=== PATIENT | female | born 1995 | race American Indian/Alaskan Native ===

== ENCOUNTER 2019-05-29 00:44 | Outpatient (CLI) | payer MEDICAID ==
[2019-05-29] MEDS ORDERED: TYLENOL #3 PO ONE (02:00)
[2019-05-29 02:35] LABS: Bilirubin,Urine NEG (Negative); Blood,Urine LG (Negative); Color,Urine Yellow (Yellow); RBC,Urine > 182.0 /HPF (0.0-6.0); Urobilinogen,Urine < 2.0 mg/dL (<2.0); WBC,Urine > 182.0 /HPF (0.0-6.0)
--- NOTE | 2019-05-29 02:43 | Ultrasound Report ---
Bilateral renal ultrasound. 05/29/2019. HISTORY: Hematuria. FINDINGS: Right kidney measures 13.5 cm. Left kidney measures 8.8 cm. Moderate right-sided hydronephr osis is present. Negative for mass or cortical thinning. Mild increased echogenicity is noted on the right. The bladder is decompressed. IMPRESSION: 1. Moderate right-sided hydronephrosis. 2. Mild increased cortical echogenicity on the right. Signer Name: Javier Ford MD Signed: 05/29/2019 2:39 AM Workstation Name: [id number]
[2019-05-29 04:21] LABS: Hematocrit 36.8 % (30.3-42.9); Hemoglobin 12.6 gm/dl (10.1-14.3); Mean Corpuscular HGB Conc 34 % (30-34); Mean Corpuscular Volume 80 fl (79-97); Platelet Count 153 K/mm3 (140-440); Red Blood Count 4.59 M/mm3 (3.65-5.03); Red Cell Distribution Width 13.8 % (13.2-15.2)
== END 2019-05-29 04:00 | disposition home or self-care (01) ==
LOC: TRG 00:44
PROVIDERS: ATTEND Obstetrics & Gynecology
DX: O99.89 Other specified diseases and conditions complicating pregnancy, childbirth and the puerperium (principal); N13.30 Unspecified hydronephrosis; Z3A.23 23 weeks gestation of pregnancy
CPT/HCPCS: 36415; 59025; 76770; 81001; 85027; 87076; 87086; 87186

== ENCOUNTER 2019-06-01 20:25 | Inpatient (IN) | payer MEDICAID ==
[2019-06-01 21:44] LABS: Color,Urine Yellow (Yellow)
[2019-06-01 21:45] LABS: Bacteria,Urine 2+ /HPF (Negative); Bilirubin,Urine NEG (Negative); Blood,Urine SM (Negative); Mucus,Urine FEW /HPF; Protein,Urine <15 mg/dL mg/dL (Negative); Urobilinogen,Urine < 2.0 mg/dL (<2.0)
[2019-06-01] MEDS ORDERED: LACTATED RINGERS 1,000 ML ONE (22:21)
--- NOTE | 2019-06-01 23:06 | History and Physical Report ---
History of Present Illness Date of examination: 06/01/19 Chief complaint: back pain, pelvic cramping History of present illness: Pt is a 23 year old female primigravida WENDIE 10/02/19 at 22w3d who presents with cramping and right-sided back pain for the past few days. In triage she had a urinalysis that along with her other symptoms is consistent with complicated UTI vs developing pyelonephritis. She has had care at [facility] since 13 wks complicated by GBS bacturia s/p Amoxicillin, limited anatomical survey with need for follow up ultrasound and alpha thalassemia carrier status. Past History Past Medical History: no pertinent history Past Surgical History: tonsillectomy Family/Genetic History: heart disease, hypertension Social history: no significant social history - Obstetrical History Expected Date of Delivery: 10/02/19 Actual Gestation: 22 Week(s) 3 Day(s) : 1 Medications and Allergies Allergies Allergy/AdvReac Type Severity Reaction Status Date / Time No Known Allergies Allergy Verified 05/29/19 02:05 Home Medications Medication Instructions Recorded Confirmed Last Taken Type Metaxalone [Skelaxin] 800 mg PO BID PRN #12 tablet 09/12/18 05/29/19 Unknown Rx Tramadol HCl [Ultram] 50 mg PO Q6HR PRN #12 tablet 09/12/18 05/29/19 Unknown Rx Review of Systems All systems: negative - Vital Signs Vital signs: Vital Signs Pulse BP 130 H 121/68 06/01/19 20:46 06/01/19 20:46 Temp Pulse Resp BP Pulse Ox 98.6 F 121 H 16 134/72 100 06/01/19 21:10 06/01/19 22:59 06/01/19 21:10 06/01/19 22:27 06/01/19 22:59 - Physical Exam Breasts: Positive: deferred Abdomen: Positive: soft, other (right flank pain ) Uterus: Positive: enlarged (gravid ) Extremities: Positive: normal - Obstetrical FHR: auscultation normal Uterine Contraction Monitor Mode: External Uterine Contraction Pattern: Absent Results Abnormal lab results 06/01/19 Range/Units 21:00 Urine WBC (Auto) 123.0 H (0.0-6.0) /HPF U Epithel Cells (Auto) 14.0 H (0-13.0) /HPF All other labs normal. Assessment and Plan A: IUP at 22w3d Complicated UTI vs Pyelonephritis GBS postive Alpha Thalassemia carrier P: Admit to antepartum service IV Rocephin Urine culture Consider ID consult
[2019-06-01] MEDS ORDERED: TYLENOL PO PRN (23:43)
[2019-06-02] MEDS ORDERED: LACTATED RINGERS 1,000 ML ONE (00:03)
[2019-06-02] MEDS: NORCO 5/325 PO PRN ×3 (00:38→20:58)
[2019-06-02 00:39] LABS: Basophils % (Auto) 0.1 % (0.0-1.8); Hematocrit 36.4 % (30.3-42.9); Hemoglobin 12.4 gm/dl (10.1-14.3); Lymphocytes # (Auto) 1.2 K/mm3 (1.2-5.4); Lymphocytes % (Auto) 8.1 % (13.4-35.0); Mean Corpuscular HGB Conc 34 % (30-34); Mean Corpuscular Volume 80 fl (79-97); Monocytes # (Auto) 1.4 K/mm3 (0.0-0.8); Monocytes % (Auto) 9.7 % (0.0-7.3); Platelet Count 155 K/mm3 (140-440); Red Blood Count 4.55 M/mm3 (3.65-5.03); Red Cell Distribution Width 13.5 % (13.2-15.2)
[2019-06-02] MEDS: ROCEPHIN/NS 1 GM/50 ML 1 GM/50 ML BAG IV SCH ×2 (00:39→22:32)
--- NOTE | 2019-06-02 07:40 | Progress Note ---
Assessment and Plan A: IUP at 22w4d Complicated UTI vs Pyelonephritis GBS postive Alpha Thalassemia carrier P: Admit to antepartum service IV Rocephin Urine culture ID consult called this am Subjective - Subjective Date of service: 06/02/19 Principal diagnosis: 22 weeks, pyelo Patient reports: movement normal, no new complaints, no loss of fluid, no vaginal bleeding, no contractions Objective - Vital Signs Vital Signs: Vital Signs - 12hr 06/01/19 06/01/19 06/01/19 20:46 21:10 21:11 Temperature 98.6 F Pulse Rate 130 H 125 H 125 H Respiratory 16 Rate Blood Pressure 121/68 138/79 Blood Pressure 138/79 [Left] Blood Pressure [Right] O2 Sat by Pulse Oximetry 06/01/19 06/01/19 06/01/19 22:27 22:29 22:34 Temperature Pulse Rate 123 H 122 H 121 H Respiratory Rate Blood Pressure 134/72 Blood Pressure [Left] Blood Pressure [Right] O2 Sat by Pulse 100 100 Oximetry 06/01/19 06/01/19 06/01/19 22:39 22:44 22:49 Temperature Pulse Rate 124 H 127 H 124 H Respiratory Rate Blood Pressure Blood Pressure [Left] Blood Pressure [Right] O2 Sat by Pulse 100 100 100 Oximetry 06/01/19 06/01/19 06/01/19 22:54 22:59 23:04 Temperature Pulse Rate 118 H 121 H 123 H Respiratory Rate Blood Pressure Blood Pressure [Left] Blood Pressure [Right] O2 Sat by Pulse 100 100 99 Oximetry 06/01/19 06/01/19 06/01/19 23:09 23:25 23:26 Temperature 102.6 F H Pulse Rate 120 H 129 H 132 H Respiratory Rate Blood Pressure 144/72 Blood Pressure [Left] Blood Pressure [Right] O2 Sat by Pulse 100 100 Oximetry 06/01/19 06/01/19 06/01/19 23:31 23:36 23:41 Temperature Pulse Rate 125 H 125 H 123 H Respiratory Rate Blood Pressure Blood Pressure [Left] Blood Pressure [Right] O2 Sat by Pulse 99 99 100 Oximetry 06/01/19 06/01/19 06/01/19 23:46 23:51 23:56 Temperature Pulse Rate 126 H 127 H 128 H Respiratory Rate Blood Pressure Blood Pressure [Left] Blood Pressure [Right] O2 Sat by Pulse 100 100 100 Oximetry 06/02/19 06/02/19 06/02/19 00:01 00:06 00:11 Temperature Pulse Rate 135 H 93 H 130 H Respiratory Rate Blood Pressure Blood Pressure [Left] Blood Pressure [Right] O2 Sat by Pulse 100 86 100 Oximetry 06/02/19 06/02/19 06/02/19 00:16 00:21 00:26 Temperature Pulse Rate 128 H 127 H 128 H Respiratory Rate Blood Pressure Blood Pressure [Left] Blood Pressure [Right] O2 Sat by Pulse 98 100 100 Oximetry 06/02/19 06/02/19 06/02/19 00:31 00:36 00:38 Temperature Pulse Rate 127 H 119 H Respiratory 18 Rate Blood Pressure Blood Pressure [Left] Blood Pressure [Right] O2 Sat by Pulse 100 100 Oximetry 06/02/19 06/02/19 06/02/19 01:00 01:36 01:41 Temperature 101.8 F H Pulse Rate 120 H 119 H Respiratory Rate Blood Pressure Blood Pressure [Left] Blood Pressure [Right] O2 Sat by Pulse 98 98 Oximetry 06/02/19 06/02/19 06/02/19 01:46 01:51 01:56 Temperature Pulse Rate 118 H 112 H 111 H Respiratory Rate Blood Pressure Blood Pressure [Left] Blood Pressure [Right] O2 Sat by Pulse 98 98 98 Oximetry 06/02/19 06/02/19 06/02/19 02:01 02:06 02:11 Temperature Pulse Rate 107 H 113 H 110 H Respiratory Rate Blood Pressure Blood Pressure [Left] Blood Pressure [Right] O2 Sat by Pulse 98 98 98 Oximetry 06/02/19 06/02/19 06/02/19 02:16 02:21 02:24 Temperature Pulse Rate 109 H 117 H Respiratory Rate Blood Pressure Blood Pressure [Left] Blood Pressure [Right] O2 Sat by Pulse 98 97 62 L Oximetry 06/02/19 06/02/19 06/02/19 02:27 02:32 02:34 Temperature Pulse Rate 109 H 104 H 104 H Respiratory Rate Blood Pressure Blood Pressure [Left] Blood Pressure [Right] O2 Sat by Pulse 99 98 92 Oximetry 06/02/19 06/02/19 06/02/19 02:37 02:42 02:47 Temperature Pulse Rate 105 H 97 H 97 H Respiratory Rate Blood Pressure Blood Pressure [Left] Blood Pressure [Right] O2 Sat by Pulse 98 98 98 Oximetry 06/02/19 06/02/19 06/02/19 02:52 02:57 03:02 Temperature Pulse Rate 97 H 98 H 101 H Respiratory Rate Blood Pressure Blood Pressure [Left] Blood Pressure [Right] O2 Sat by Pulse 98 98 98 Oximetry 06/02/19 06/02/19 06/02/19 03:07 03:12 03:17 Temperature Pulse Rate 101 H 106 H 111 H Respiratory Rate Blood Pressure Blood Pressure [Left] Blood Pressure [Right] O2 Sat by Pulse 98 100 100 Oximetry 06/02/19 06/02/19 06/02/19 03:22 03:27 03:32 Temperature Pulse Rate 102 H 100 H 89 Respiratory Rate Blood Pressure Blood Pressure [Left] Blood Pressure [Right] O2 Sat by Pulse 98 99 100 Oximetry 06/02/19 06/02/19 06/02/19 03:37 03:42 03:47 Temperature Pulse Rate 89 104 H 96 H Respiratory Rate Blood Pressure Blood Pressure [Left] Blood Pressure [Right] O2 Sat by Pulse 100 100 100 Oximetry 06/02/19 06/02/19 06/02/19 03:52 03:57 04:00 Temperature 98.9 F Pulse Rate 102 H 99 H 100 H Respiratory 16 Rate Blood Pressure 116/63 Blood Pressure [Left] Blood Pressure 116/63 [Right] O2 Sat by Pulse 100 100 100 Oximetry 06/02/19 06/02/19 06/02/19 04:02 04:07 04:24 Temperature Pulse Rate 120 H 111 H 114 H Respiratory Rate Blood Pressure Blood Pressure [Left] Blood Pressure [Right] O2 Sat by Pulse 91 99 100 Oximetry 06/02/19 06/02/19 06/02/19 04:29 04:34 04:36 Temperature Pulse Rate 111 H 109 H 119 H Respiratory Rate Blood Pressure Blood Pressure [Left] Blood Pressure [Right] O2 Sat by Pulse 100 100 93 Oximetry 06/02/19 06/02/19 06/02/19 04:39 04:44 04:49 Temperature Pulse Rate 111 H 106 H 110 H Respiratory Rate Blood Pressure Blood Pressure [Left] Blood Pressure [Right] O2 Sat by Pulse 100 100 100 Oximetry 06/02/19 06/02/19 06/02/19 04:54 04:55 05:00 Temperature Pulse Rate 110 H 109 H Respiratory Rate Blood Pressure Blood Pressure [Left] Blood Pressure [Right] O2 Sat by Pulse 66 L 99 100 Oximetry 06/02/19 06/02/19 06/02/19 05:05 05:10 05:15 Temperature Pulse Rate 107 H 109 H 110 H Respiratory Rate Blood Pressure Blood Pressure [Left] Blood Pressure [Right] O2 Sat by Pulse 100 100 100 Oximetry 06/02/19 06/02/19 06/02/19 05:20 05:25 05:30 Temperature Pulse Rate 110 H 113 H 133 H Respiratory Rate Blood Pressure Blood Pressure [Left] Blood Pressure [Right] O2 Sat by Pulse 100 100 100 Oximetry 06/02/19 06/02/19 06/02/19 05:35 05:38 05:51 Temperature Pulse Rate 117 H 123 H 124 H Respiratory Rate Blood Pressure Blood Pressure [Left] Blood Pressure [Right] O2 Sat by Pulse 97 83 L 92 Oximetry 06/02/19 06/02/19 06/02/19 05:56 06:01 06:06 Temperature Pulse Rate 126 H 127 H 126 H Respiratory Rate Blood Pressure Blood Pressure [Left] Blood Pressure [Right] O2 Sat by Pulse 100 100 100 Oximetry 06/02/19 06/02/19 06/02/19 06:11 06:16 06:21 Temperature Pulse Rate 129 H 131 H 124 H Respiratory Rate Blood Pressure Blood Pressure [Left] Blood Pressure [Right] O2 Sat by Pulse 99 98 98 Oximetry 06/02/19 06/02/19 06/02/19 06:26 06:31 06:36 Temperature Pulse Rate 129 H 126 H 126 H Respiratory Rate Blood Pressure Blood Pressure [Left] Blood Pressure [Right] O2 Sat by Pulse 99 99 99 Oximetry 06/02/19 06/02/19 06/02/19 06:41 06:46 06:51 Temperature Pulse Rate 127 H 125 H 128 H Respiratory Rate Blood Pressure Blood Pressure [Left] Blood Pressure [Right] O2 Sat by Pulse 100 98 99 Oximetry 06/02/19 06/02/19 06/02/19 06:56 07:00 07:06 Temperature Pulse Rate 126 H 118 H 113 H Respiratory Rate Blood Pressure Blood Pressure [Left] Blood Pressure [Right] O2 Sat by Pulse 98 100 100 Oximetry 06/02/19 06/02/19 06/02/19 07:10 07:16 07:20 Temperature Pulse Rate 113 H 116 H 118 H Respiratory Rate Blood Pressure Blood Pressure [Left] Blood Pressure [Right] O2 Sat by Pulse 99 97 100 Oximetry 06/02/19 06/02/19 06/02/19 07:23 07:25 07:30 Temperature Pulse Rate 120 H 134 H 123 H Respiratory Rate Blood Pressure 129/65 Blood Pressure [Left] Blood Pressure [Right] O2 Sat by Pulse 100 100 Oximetry 06/02/19 07:35 Temperature 98.8 F Pulse Rate 124 H Respiratory 22 Rate Blood Pressure Blood Pressure [Left] Blood Pressure [Right] O2 Sat by Pulse 100 Oximetry - Exam Breasts: normal Cardiovascular: Regular rate, Normal S1 Lungs: Clear to auscultation, Normal air movement Abdomen: Present: normal appearance, soft, normal bowel sounds. Absent: distention, tenderness, guarding Vulva: both: normal Uterus: Present: normal, firm. Absent: bogginess, tenderness FHR: category 1 Extremities: normal Deep Tendon Reflex Grade: Normal +2 - Labs Labs: Abnormal Labs 06/01/19 06/01/19 21:00 22:10 WBC 14.8 H MCH 27 L Lymph % (Auto) 8.1 L [place] % (Auto) 9.7 H [place] # 1.4 H Seg Neutrophils % 82.1 H Seg Neutrophils # 12.2 H Urine WBC (Auto) 123.0 H U Epithel Cells (Auto) 14.0 H Laboratory Results - last 24 hr 06/01/19 06/01/19 21:00 22:10 WBC 14.8 H RBC 4.55 Hgb 12.4 Hct 36.4 MCV 80 MCH 27 L MCHC 34 RDW 13.5 Plt Count 155 Lymph % (Auto) 8.1 L [place] % (Auto) 9.7 H Eos % (Auto) 0.0 Baso % (Auto) 0.1 Lymph # 1.2 [place] # 1.4 H Eos # 0.0 Baso # 0.0 Seg Neutrophils % 82.1 H Seg Neutrophils # 12.2 H Urine Color Yellow Urine Turbidity Cloudy Urine pH 7.0 Ur Specific [place] 1.009 Urine Protein <15 mg/dl Urine Glucose (UA) Neg Urine Ketones 20 Urine Blood Sm Urine Nitrite Pos Urine Bilirubin Neg Urine Urobilinogen < 2.0 Ur Leukocyte Esterase Lg Urine WBC (Auto) 123.0 H Urine RBC (Auto) 2.0 U Epithel Cells (Auto) 14.0 H Urine Bacteria (Auto) 2+ Urine Mucus Few
[2019-06-02] MEDS: ZOFRAN IV PRN (08:48)
[2019-06-02] MEDS ORDERED: MORPHINE IV ONE (10:00)
[2019-06-02] MEDS: DEEP SEA NS SCH ×4 (10:01→23:21)
[2019-06-02] MEDS: TYLENOL PO PRN ×2 (10:02→16:28)
[2019-06-02] MEDS: PRENATAL VITAMIN PO SCH (10:03)
--- NOTE | 2019-06-02 11:28 | Consultation ---
History of Present Illness - Reason for Consult Consult date: 06/02/19 - History of Present Illness 23 yo F primigravida (22w) who was admitted for cramping and R back pain for the past few days. She has had pre-mar care since 13 weeks, and was noted to have a GBS bacteriuria which was treated with amoxicillin. She is also noted to have alpha-thalassemia carrier. A urinalysis in the ED was concerning for UTI/pyelonephritis, and as such she was admitted. She was febrile on admission to 102.6 and was started on ceftriaxone. No cultures are yet available (lab pending). She has a leukocytosis to 15. Imaging personally reviewed: None obtained. Review of Systems: Bold if positive, otherwise negative General: fevers, chills, rigors HEENT: visual disturbance, diplopia, eye pain Respiratory: cough, sputum, hemoptysis, shortness of breath Cardiovascular: chest pain, syncope Gastrointestinal: nausea, vomiting, diarrhea, abdominal pain Genitourinary: dysuria, hematuria, flank pain Musculoskeletal: neck pain, back pain, joint pain, edema, flank pain Neurologic: headaches, seizures Hematologic: easy bruising or bleeding Endocrine: night sweats, acute weight loss Skin: rash, jaundice, redness Psychiatric: suicidal, homicidal ideation Past History Past Medical History: No medical history Past Surgical History: No surgical history Social history: no significant social history. denies: smoking, alcohol abuse Family history: no significant family history Medications and Allergies Allergies Allergy/AdvReac Type Severity Reaction Status Date / Time No Known Allergies Allergy Verified 05/29/19 02:05 Home Medications Medication Instructions Recorded Confirmed Last Taken Type Metaxalone [Skelaxin] 800 mg PO BID PRN #12 tablet 09/12/18 05/29/19 Unknown Rx Tramadol HCl [Ultram] 50 mg PO Q6HR PRN #12 tablet 09/12/18 05/29/19 Unknown Rx Active Meds: Active Medications Acetaminophen (Tylenol) 650 mg PO Q4H PRN PRN Reason: Pain MILD(1-3)/Fever >100.5/WYATT Last Admin: 06/02/19 10:02 Dose: 650 mg Documented by: Acetaminophen/Hydrocodone Bitart ([place] 5/325) 2 each PO Q6H PRN PRN Reason: Pain, Moderate (4-6) Last Admin: 06/02/19 05:35 Dose: 2 each Documented by: Docusate Sodium (Colace) 100 mg PO Q12H PRN PRN Reason: Constipation Lactated Ringer's (Lactated Ringers) 1,000 mls @ 150 mls/hr IV DIRECT BLANCHE Ceftriaxone Sodium (Rocephin/Ns 1 Gm/50 Ml) 1 gm in 50 mls @ 100 mls/hr IV Q24HR@2200 BLANCHE; Protocol Last Admin: 06/02/19 00:39 Dose: 100 mls/hr Documented by: Multivitamins/Iron/Calcium ( Vitamin) 1 each PO QDAY [facility] Last Admin: 06/02/19 10:03 Dose: 1 each Documented by: Ondansetron HCl (Zofran) 4 mg IV Q6H PRN PRN Reason: Nausea And Vomiting Last Admin: 06/02/19 08:48 Dose: 4 mg Documented by: Sodium Chloride ([place]) 2 spray NS QID [facility] Last Admin: 06/02/19 10:01 Dose: 2 spray Documented by: Physical Examination - Physical Exam Narrative exam: Physical Exam: Constitutional: Alert, cooperative. No acute distress Head, Ears, Nose: Normocephalic, atraumatic. External ears, nose normal Eyes: Conjunctivae/corneas clear. No icterus. No ptosis. Neck: Supple, no meningeal signs Oral: dentition fair, no thrush Cardiovascular: S1, S2 normal. Respiratory: Good air entry, clear to auscultation bilaterally GI: Soft, non-tender; bowel sounds normal. No peritoneal signs. Musculoskeletal: No pedal edema, no cyanosis. + R sided flank pain Skin: No rash or abscess Hem/Lymphatic: No palpable cervical or supraclavicular nodes. No lymphangitis Psych: Mood ok. Affect normal Neurological: Awake, alert, oriented. No gross abnormality - Constitutional Vitals: Vital Signs Temp Pulse Resp BP Pulse Ox 98.8 F 129 H 22 129/65 100 06/02/19 07:35 06/02/19 09:57 06/02/19 07:35 06/02/19 07:23 06/02/19 09:57 Temperature -Last 24 Hours Temperature 98.8 F Temperature 98.9 F Temperature 101.8 F Temperature 102.6 F Temperature 98.6 F Results - Labs CBC & Chem 7: 06/01/19 22:10 Labs: Abnormal lab results 06/01/19 06/01/19 Range/Units 21:00 22:10 WBC 14.8 H (4.5-11.0) K/mm3 MCH 27 L (28-32) pg Lymph % (Auto) 8.1 L (13.4-35.0) % [place] % (Auto) 9.7 H (0.0-7.3) % [place] # 1.4 H (0.0-0.8) K/mm3 Seg Neutrophils % 82.1 H (40.0-70.0) % Seg Neutrophils # 12.2 H (1.8-7.7) K/mm3 Urine WBC (Auto) 123.0 H (0.0-6.0) /HPF U Epithel Cells (Auto) 14.0 H (0-13.0) /HPF Assessment and Plan Cultures: Pending urine cultures A/P: 23 yo F primigravida (22w) who was admitted for likely pyelonephritis 1. Sepsis secondary to presumed pyelonephritis - Given her and obvious flank pain, ok to presume this is pyelonephritis based on symptoms assuming urine cultures return a positive result. Given the obviousness of her symptoms would defer on diagnostic CT for protection. Agree with ceftriaxone for now pending urine culture finalization. 2. (22 weeks) Recs: - follow up urine cultures - ordered blood cultures as urine cultures often contaminated - continue ceftriaxone 1g q24h Thank you for the consult, we will continue to follow. Yonny Barajas MD [facility] M: [phone] O: [phone] F: [phone]
--- NOTE | 2019-06-02 12:02 | Ultrasound Report ---
ULTRASOUND BIOPHYSICAL PROFILE ULTRASOUND OB LIMITED INDICATION: pyelonephritis, well being TECHNIQUE: Transabdominal ultrasound imaging. COMPARISON: None FINDINGS: breathing movement = 2 Gross body movement = 2 tone = 2 Qualitative amniotic fluid volume = 2 Total biophysical score = 8/8 Amniotic fluid index is 6.6 cm. Presentation is breech. heart rate is 166 beats per minute. IMPRESSION: biophysical profile equals 8/8. Mild oligohydramnios. Signer Name: Andrew Curry Jr, MD Signed: 06/02/2019 11:58 AM Workstation Name: [id number]
[2019-06-02] MEDS: COLACE PO PRN (13:44)
[2019-06-02] MEDS: LACTATED RINGERS 1,000 ML IV SCH (16:24)
[2019-06-02] MEDS: AMBIEN PO PRN (23:20)
[2019-06-03] MEDS: NORCO 5/325 PO PRN ×2 (03:04→08:11)
--- NOTE | 2019-06-03 07:40 | Progress Note ---
Assessment and Plan - Patient Problems (1) Pyelonephritis affecting Current Visit: Yes Status: Acute Plan to address problem: awaiting urine culture results supportive care Subjective - Subjective Date of service: 06/03/19 Principal diagnosis: 22 weeks, pyelo Interval history: 23y/o @ 22+5 weeks admitted for pyelonephritis. Reports slight improvement in symptoms. Still experiencing flank pain. Urine culture pending, will contact lab. Patient is currently afebrile. Patient reports: movement normal, no new complaints, no loss of fluid, no vaginal bleeding, no contractions Objective - Vital Signs Vital Signs: Vital Signs - 12hr 06/02/19 06/03/19 21:58 00:00 Pulse Rate 110 H Respiratory 18 Rate Blood Pressure 133/76 - Labs Labs: Abnormal Labs 06/01/19 06/01/19 21:00 22:10 WBC 14.8 H MCH 27 L Lymph % (Auto) 8.1 L [place] % (Auto) 9.7 H [place] # 1.4 H Seg Neutrophils % 82.1 H Seg Neutrophils # 12.2 H Urine WBC (Auto) 123.0 H U Epithel Cells (Auto) 14.0 H Laboratory Results - last 24 hr 06/01/19 22:10 Blood Type O POSITIVE Antibody Screen Positive Antibody Identification Non-specific Antibody
[2019-06-03] MEDS: ZOFRAN IV PRN ×2 (08:11→14:23)
[2019-06-03] MEDS: COLACE PO PRN (08:11)
[2019-06-03] MEDS ORDERED: DULCOLAX PO PRN (10:00)
[2019-06-03] MEDS ORDERED: ROCEPHIN/NS 2 GM/100 ML 2 GM/100 ML BAG IV SCH (10:00)
[2019-06-03] MEDS ORDERED: ROCEPHIN/NS 1 GM/50 ML 1 GM/50 ML BAG IV SCH (10:00)
[2019-06-03] MEDS: PRENATAL VITAMIN PO SCH (10:25)
--- NOTE | 2019-06-03 11:28 | Progress Note ---
Assessment and Plan Cultures: 06/01/19 Urine: GNR 06/02/19 Blood in progress A/P: 23 yo F primigravida (22w) who was admitted for likely pyelonephritis 1. Sepsis secondary to presumed pyelonephritis - Improved. Leukocytosis trending down. No fevers in >24 hours. Given her and obvious flank pain, ok to presume this is pyelonephritis based on symptoms assuming urine cultures return a positive result. Given the obviousness of her symptoms would defer on diagnostic CT for protection. Agree with ceftriaxone for now pending urine culture finalization. 2. (22 weeks) Recs: - follow up urine cultures for ID and susceptibility - follow-up blood cultures - continue ceftriaxone 1g q24h [facility] M: [phone] O:[phone] Subjective Date of service: 06/03/19 Principal diagnosis: 22 weeks, pyelo Interval history: Patient seen and examined. Sitting up in bed, reports continued right flank pain. No fevers. Objective - Exam Narrative Exam: Constitutional: Alert, cooperative. No acute distress Head, Ears, Nose: Normocephalic, atraumatic. External ears, nose normal Eyes: Conjunctivae/corneas clear. No icterus. No ptosis. Neck: Supple, no meningeal signs Oral: dentition fair, no thrush Cardiovascular: S1, S2 normal. Respiratory: Good air entry, clear to auscultation bilaterally GI: Soft, non-tender; bowel sounds normal. No peritoneal signs. Musculoskeletal: No pedal edema, no cyanosis. + R sided flank pain Skin: No rash or abscess Hem/Lymphatic: No palpable cervical or supraclavicular nodes. No lymphangitis Psych: Mood ok. Affect normal Neurological: Awake, alert, oriented. No gross abnormality - Constitutional Vitals: Vital Signs Temp Pulse Resp BP Pulse Ox 96.1 F L 102 H 20 126/76 100 06/03/19 11:25 06/03/19 11:24 06/03/19 11:25 06/03/19 11:24 06/03/19 11:24 Temperature -Last 24 Hours Temperature 96.1 F Temperature 96.9 F Temperature 97.7 F Temperature 98.6 F Temperature 98.4 F - Labs CBC & Chem 7: 06/03/19 12:14 06/03/19 12:14
[2019-06-03 12:39] LABS: Basophils % (Auto) 0.2 % (0.0-1.8); Eosinophils # (Auto) 0.1 K/mm3 (0.0-0.4); Eosinophils % (Auto) 0.6 % (0.0-4.3); Hematocrit 32.4 % (30.3-42.9); Hemoglobin 10.7 gm/dl (10.1-14.3); Lymphocytes # (Auto) 1.1 K/mm3 (1.2-5.4); Lymphocytes % (Auto) 9.7 % (13.4-35.0); Mean Corpuscular HGB Conc 33 % (30-34); Mean Corpuscular Volume 80 fl (79-97); Monocytes # (Auto) 1.4 K/mm3 (0.0-0.8); Monocytes % (Auto) 12.3 % (0.0-7.3); Platelet Count 161 K/mm3 (140-440); Red Blood Count 4.03 M/mm3 (3.65-5.03); Red Cell Distribution Width 13.9 % (13.2-15.2)
[2019-06-03 13:05] LABS: Alanine Aminotransferase 9 units/L (7-56); Albumin 2.9 g/dL (3.9-5); BUN/Creatinine Ratio 8; Blood Urea Nitrogen 4 mg/dL (7-17); Calcium 9.4 mg/dL (8.4-10.2); Hemolysis Index 6
[2019-06-03] MEDS: LACTATED RINGERS 1,000 ML IV SCH (18:01)
[2019-06-03] MEDS: ROCEPHIN/NS 1 GM/50 ML 1 GM/50 ML BAG IV SCH (22:39)
[2019-06-03] MEDS: DEEP SEA NS SCH (22:43)
[2019-06-03] MEDS: AMBIEN PO PRN (22:46)
[2019-06-04] MEDS: MORPHINE IV PRN (06:24)
[2019-06-04] MEDS: REGLAN IV SCH ×2 (08:17→15:18)
--- NOTE | 2019-06-04 08:17 | Progress Note ---
Subjective - Subjective Principal diagnosis: 22 weeks, pyelo Interval history: Pt is a 23 year old female primigravida WENDIE 10/02/19 at 22w3d who presents with cramping and right-sided back pain for the past few days. In triage she had a urinalysis that along with her other symptoms is consistent with complicated UTI vs developing pyelonephritis. She has had care at [facility] since 13 wks complicated by GBS bacturia s/p Amoxicillin, limited anatomical survey with need for follow up ultrasound and alpha thalassemia carrier status. Patient reports: movement normal, no new complaints, no loss of fluid, no vaginal bleeding, no contractions Objective - Vital Signs Vital Signs: Vital Signs - 12hr 06/03/19 20:38 Pulse Rate 102 H Blood Pressure 129/79 - Labs Labs: Abnormal Labs 06/01/19 06/01/19 06/03/19 21:00 22:10 12:14 WBC 14.8 H 11.7 H MCH 27 L 26 L Lymph % (Auto) 8.1 L 9.7 L [place] % (Auto) 9.7 H 12.3 H Lymph # 1.1 L [place] # 1.4 H 1.4 H Seg Neutrophils % 82.1 H 77.2 H Seg Neutrophils # 12.2 H 9.0 H BUN Creatinine Albumin Urine WBC (Auto) 123.0 H U Epithel Cells (Auto) 14.0 H 06/03/19 12:14 WBC MCH Lymph % (Auto) [place] % (Auto) Lymph # [place] # Seg Neutrophils % Seg Neutrophils # BUN 4 L Creatinine 0.5 L Albumin 2.9 L Urine WBC (Auto) U Epithel Cells (Auto) Laboratory Results - last 24 hr 06/03/19 06/03/19 12:14 12:14 WBC 11.7 H RBC 4.03 Hgb 10.7 Hct 32.4 MCV 80 MCH 26 L MCHC 33 RDW 13.9 Plt Count 161 Lymph % (Auto) 9.7 L [place] % (Auto) 12.3 H Eos % (Auto) 0.6 Baso % (Auto) 0.2 Lymph # 1.1 L [place] # 1.4 H Eos # 0.1 Baso # 0.0 Seg Neutrophils % 77.2 H Seg Neutrophils # 9.0 H Sodium 137 Potassium 3.6 Chloride 103.2 Carbon Dioxide 24 Anion Gap 13 BUN 4 L Creatinine 0.5 L Estimated GFR > 60 BUN/Creatinine Ratio 8 Glucose 78 Calcium 9.4 Total Bilirubin 0.30 AST 10 ALT 9 Alkaline Phosphatase 61 Total Protein 6.6 Albumin 2.9 L Albumin/Globulin Ratio 0.8
[2019-06-04] MEDS ORDERED: ZOFRAN IV PRN (09:00)
[2019-06-04 09:39] LABS: Basophils % (Auto) 0.2 % (0.0-1.8); Eosinophils # (Auto) 0.1 K/mm3 (0.0-0.4); Hematocrit 33.5 % (30.3-42.9); Hemoglobin 11.4 gm/dl (10.1-14.3); Lymphocytes # (Auto) 1.5 K/mm3 (1.2-5.4); Lymphocytes % (Auto) 18.5 % (13.4-35.0); Mean Corpuscular HGB Conc 34 % (30-34); Mean Corpuscular Volume 80 fl (79-97); Monocytes % (Auto) 12.3 % (0.0-7.3); Platelet Count 178 K/mm3 (140-440); Red Cell Distribution Width 13.5 % (13.2-15.2)
--- NOTE | 2019-06-04 09:44 | Progress Note ---
Assessment and Plan Cultures: 06/01/19 Urine: E. Coli, susceptible to ceftriaxone 06/02/19 Blood No growth A/P: 23 yo F primigravida (22w) who was admitted for likely pyelonephritis 1. Sepsis secondary to presumed pyelonephritis - Improved. Leukocytosis trending down. No fevers in >24 hours. Given her and obvious flank pain, ok to presume this is pyelonephritis based on symptoms assuming urine cultures return a positive result. Given the obviousness of her symptoms would defer on diagnostic CT for protection. 2. (22 weeks) Recs: - follow-up blood cultures - continue ceftriaxone 1g q24h -Anticipate discharge on Cefdinir 300mg PO for total 2 weeks ending 06/16/19 [facility] M: [phone] O:[phone] Subjective Date of service: 06/04/19 Principal diagnosis: 22 weeks, pyelo Interval history: Patient seen and examined. Sitting up in the chair. Reports improved symptoms. No fevers. Objective - Exam Narrative Exam: Constitutional: Alert, cooperative. No acute distress Head, Ears, Nose: Normocephalic, atraumatic. External ears, nose normal Eyes: Conjunctivae/corneas clear. No icterus. No ptosis. Neck: Supple, no meningeal signs Oral: dentition fair, no thrush Cardiovascular: S1, S2 normal. Respiratory: Good air entry, clear to auscultation bilaterally GI: Soft, non-tender; bowel sounds normal. No peritoneal signs. Musculoskeletal: No pedal edema, no cyanosis. Skin: No rash or abscess Hem/Lymphatic: No palpable cervical or supraclavicular nodes. No lymphangitis Psych: Mood ok. Affect normal Neurological: Awake, alert, oriented. No gross abnormality - Constitutional Vitals: Vital Signs Temp Pulse Resp BP Pulse Ox 97.7 F 100 H 16 126/59 100 06/04/19 08:45 06/04/19 08:45 06/04/19 08:45 06/04/19 08:45 06/03/19 11:24 Temperature -Last 24 Hours Temperature 97.7 F Temperature 98.1 F Temperature 97.9 F Temperature 96.1 F - Labs CBC & Chem 7: 06/04/19 09:16 06/04/19 09:16 Labs: Abnormal lab results 06/03/19 06/03/19 06/04/19 Range/Units 12:14 12:14 09:16 WBC 11.7 H (4.5-11.0) K/mm3 MCH 26 L 27 L (28-32) pg Lymph % (Auto) 9.7 L (13.4-35.0) % [place] % (Auto) 12.3 H 12.3 H (0.0-7.3) % Lymph # 1.1 L (1.2-5.4) K/mm3 [place] # 1.4 H 1.0 H (0.0-0.8) K/mm3 Seg Neutrophils % 77.2 H (40.0-70.0) % Seg Neutrophils # 9.0 H (1.8-7.7) K/mm3 BUN 4 L (7-17) mg/dL Creatinine 0.5 L (0.7-1.2) mg/dL Albumin 2.9 L (3.9-5) g/dL
[2019-06-04 09:49] LABS: BUN/Creatinine Ratio 6; Blood Urea Nitrogen 3 mg/dL (7-17); Calcium 9.3 mg/dL (8.4-10.2); Hemolysis Index 2
[2019-06-04] MEDS ORDERED: PROTONIX IV SCH (10:00)
[2019-06-04] MEDS: DEEP SEA NS SCH (10:30)
[2019-06-04] MEDS: PRENATAL VITAMIN PO SCH (10:33)
[2019-06-04] MEDS: ROCEPHIN/NS 1 GM/50 ML 1 GM/50 ML BAG IV SCH (22:33)
[2019-06-04 22:37] LABS: Hepatitis B Surface Antigen Non-Reactive (Negative); Hepatitis C Virus Antibody Non-Reactive (NonReactive)
[2019-06-04] MEDS: AMBIEN PO PRN (22:46)
[2019-06-05] MEDS: LACTATED RINGERS 1,000 ML IV SCH (00:17)
[2019-06-05] MEDS: MORPHINE IV PRN (06:33)
[2019-06-05 07:47] VITALS: BP 115/63
[2019-06-05] MEDS: REGLAN IV SCH (09:15)
--- NOTE | 2019-06-05 09:32 | Progress Note ---
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 f/u next week appreciate ID input Subjective - Subjective Date of service: 06/05/19 Principal diagnosis: 22 weeks, pyelo Patient reports: movement normal, no new complaints, no loss of fluid, no vaginal bleeding, no contractions Objective - Vital Signs Vital Signs: Vital Signs - 12hr 06/05/19 06/05/19 06/05/19 06:33 07:45 07:46 Temperature 97.5 F L Pulse Rate 93 H 91 H Respiratory 18 20 Rate Blood Pressure 115/63 Blood Pressure 115/63 [Right] O2 Sat by Pulse 99 99 Oximetry - Exam Breasts: normal Cardiovascular: Regular rate, Normal S1 Lungs: Clear to auscultation, Normal air movement Abdomen: Present: normal appearance, soft, normal bowel sounds. Absent: distention, tenderness, guarding Vulva: both: normal Uterus: Present: normal. Absent: bogginess, tenderness FHR: auscultation normal - Labs Labs: Abnormal Labs 06/01/19 06/01/19 06/03/19 21:00 22:10 12:14 WBC 14.8 H 11.7 H MCH 27 L 26 L Lymph % (Auto) 8.1 L 9.7 L [place] % (Auto) 9.7 H 12.3 H Lymph # 1.1 L [place] # 1.4 H 1.4 H Seg Neutrophils % 82.1 H 77.2 H Seg Neutrophils # 12.2 H 9.0 H Potassium BUN Creatinine Albumin Lipase Urine WBC (Auto) 123.0 H U Epithel Cells (Auto) 14.0 H 06/03/19 06/04/19 06/04/19 12:14 09:16 09:16 WBC MCH 27 L Lymph % (Auto) [place] % (Auto) 12.3 H Lymph # [place] # 1.0 H Seg Neutrophils % Seg Neutrophils # Potassium 3.4 L BUN 4 L 3 L Creatinine 0.5 L 0.5 L Albumin 2.9 L Lipase 7 L Urine WBC (Auto) U Epithel Cells (Auto) Laboratory Results - last 24 hr 06/04/19 06/04/19 06/04/19 09:16 09:16 09:16 WBC 7.9 RBC 4.20 Hgb 11.4 Hct 33.5 MCV 80 MCH 27 L MCHC 34 RDW 13.5 Plt Count 178 Lymph % (Auto) 18.5 [place] % (Auto) 12.3 H Eos % (Auto) 1.0 Baso % (Auto) 0.2 Lymph # 1.5 [place] # 1.0 H Eos # 0.1 Baso # 0.0 Seg Neutrophils % 68.0 Seg Neutrophils # 5.4 Sodium 138 Potassium 3.4 L Chloride 103.3 Carbon Dioxide 22 Anion Gap 16 BUN 3 L Creatinine 0.5 L Estimated GFR > 60 BUN/Creatinine Ratio 6 Glucose 87 Calcium 9.3 Amylase 67 Lipase 7 L TSH 2.880 Hepatitis A IgM Ab Hep Bs Antigen Hep B Core IgM Ab Hepatitis C Antibody 06/04/19 09:16 WBC RBC Hgb Hct MCV MCH MCHC RDW Plt Count Lymph % (Auto) [place] % (Auto) Eos % (Auto) Baso % (Auto) Lymph # [place] # Eos # Baso # Seg Neutrophils % Seg Neutrophils # Sodium Potassium Chloride Carbon Dioxide Anion Gap BUN Creatinine Estimated GFR BUN/Creatinine Ratio Glucose Calcium Amylase Lipase TSH Hepatitis A IgM Ab Non-reactive Hep Bs Antigen Non-reactive Hep B Core IgM Ab Non-reactive Hepatitis C Antibody Non-reactive
--- NOTE | 2019-06-05 09:33 | Discharge Summary ---
Providers - Providers Date of Admission: 06/02/19 00:17 Date of discharge: 06/05/19 Attending physician: JUAN LIVINGSTON 06/02/19 07:40 Consult to Physician [CONS] Urgent Comment: Consulting Provider: BRANDY IRIZARRY Physician Instructions: Reason For Exam: 22 weeks, utivs pyelo Primary care physician: JUAN LIVINGSTON Hospitalization Reason for admission: other (pyelonephritis) Hospital course: patient admitted and started on abx for pyelo. ID consult obtained. blood cultures e.coli in urine. cefdinir 300 mg bid for 14 days. F/u in 7 days Condition at discharge: Good Disposition: DC-01 TO HOME OR SELFCARE Plan - Discharge Medications Prescriptions: Cefdinir 300 mg PO BID #28 capsule - Provider Discharge Summary Additional instructions: [] Smoking cessation referral if applicable(refer to patient education folder for contact #) [] Refer to [facility]'s [facility] Booklet Call your doctor immediately for: * Fever > 100.5 * Heavy vaginal bleeding ( >1 pad per hour) * Severe persistent headache * Shortness of breath * Reddened, hot, painful area to leg or breast * Drainage or odor from incision. * Keep incision clean and dry at all times and follow doctor's instructions regarding bathing/showering - Follow up plan Follow up: JUAN LIVINGSTON MD [Primary Care Provider] - 7 Days
== END 2019-06-05 10:53 | disposition home or self-care (01) | DRG 781 ==
LOC: TRG 20:25 → LD 23:14 → UNDOADMOB 23:14 → LD 06-02 00:17 → OBSVTOIN 06-02 00:17
PROVIDERS: ADMIT Obstetrics & Gynecology; ATTEND Obstetrics & Gynecology
DX: O98.812 Other maternal infectious and parasitic diseases complicating pregnancy, second trimester (principal); O99.820 Streptococcus B carrier state complicating pregnancy; O99.112 Other diseases of the blood and blood-forming organs and certain disorders involving the immune mechanism complicating pregnancy, second trimester; O23.02 Infections of kidney in pregnancy, second trimester; D56.3 Thalassemia minor; A41.9 Sepsis, unspecified organism; Z3A.22 22 weeks gestation of pregnancy
CPT/HCPCS: 36415; 76815; 76819; 80048; 80053; 80074; 81001; 82150; 83690; 84443; 85025; 86850; 86870; 86900; 86901; 87040; 87076; 87086; 87186; 96360; G0378; C9113; J0696; J2270; J2405; J2765; J7120

== ENCOUNTER 2020-02-07 04:57 | Emergency (ER) | payer MEDICAID | END 2020-02-07 05:05 | disposition left against medical advice (07) | LOC: ED 04:57 | DX: K62.89 Other specified diseases of anus and rectum (principal); Z53.21 Procedure and treatment not carried out due to patient leaving prior to being seen by health care provider ==